=== PATIENT | female | born 1965 | race American Indian/Alaskan Native ===

== ENCOUNTER 2016-12-16 16:48 | Emergency (ER) | payer SELFPAY ==
--- NOTE | 2016-12-16 17:47 | Emergency Department Report ---
Chief Complaint: High BP Stated Complaint: HEAD/CHEST CONGESTION/COUGH/BP HIGH Time Seen by Provider: 12/16/16 17:43 - HPI History of Present Illness: 51-year-old female comes in for complaint of chest congestion cough and elevated blood pressure and headache as well. She denies any past medical history, she takes no medication on a daily basis. She did try some Mucinex at 11:00 this morning. - Exam Vital Signs: Vital Signs 12/16/16 17:25 Temperature 98.1 F Pulse Rate 79 Respiratory 20 Rate Blood Pressure 177/111 O2 Sat by Pulse 95 Oximetry Physical Exam: He is alert and oriented 3 cardio vascular S1-S2 regular rate and rhythm respiratory clear to auscultation bilateral MSE screening note: Focused history and physical exam performed. Due to findings the following was ordered: CBC BMP is been ordered patient to be evaluated in the ER. ED Disposition for MSE Condition: Stable
[2016-12-16 18:34] LABS: Hematocrit 46.2 % (30.3-42.9); Hemoglobin 15.4 gm/dl (10.1-14.3); Mean Corpuscular HGB Conc 33 % (30-34); Mean Corpuscular Hemoglobin 30 pg (28-32); Mean Corpuscular Volume 89 fl (79-97); Platelet Count 233 K/mm3 (140-440); Red Blood Count 5.22 M/mm3 (3.65-5.03); Red Cell Distribution Width 13.4 % (13.2-15.2); White Blood Count 6.9 K/mm3 (4.5-11.0)
[2016-12-16 18:59] LABS: Anion Gap 16 mmol/L; BUN/Creatinine Ratio 21.25; Blood Urea Nitrogen 17 mg/dL (7-17); Calcium 9.1 mg/dL (8.4-10.2); Carbon Dioxide 27 mmol/L (22-30); Chloride 104.6 mmol/L (98-107); Glucose 98 mg/dL (65-100); Sodium 143 mmol/L (137-145)
[2016-12-16] MEDS ORDERED: DUONEB 0.5 MG-3 MG/3 ML SOLN IH ONE (21:14)
[2016-12-16] MEDS ORDERED: DELTASONE PO ONE (21:16)
--- NOTE | 2016-12-16 21:16 | Emergency Department Report ---
HPI - General Chief Complaint: High BP Time Seen by Provider: 12/16/16 17:43 - HPI HPI: This is a 51-year-old female who presents to the emergency department with complaint of a one-week history of a productive cough and head and chest congestion. She denies any fever, chest pain, shortness breath, back pain, nausea, vomiting. She tried some Mucinex for symptoms without much relief. She admits to tobacco abuse. No recent travel or sick contacts at home. She does not have a primary care doctor. The patient was found to have elevated blood pressure when she came here through triage. She denies any diagnosed history of hypertension and is not on any medications. She does admit to drinking a lot of caffeinated products and eating a diet that is high in salt. ED Past Medical Hx - Past Medical History Previous Medical History?: No - Surgical History Past Surgical History?: No - Social History Smoking Status: Current Every Day Smoker Substance Use Type: Alcohol - Medications Home Medications: Home Medications Medication Instructions Recorded Confirmed Last Taken Type ALBUTEROL Inhaler [ProAir HFA 2 puff IH QID PRN #1 inhalation 12/16/16 Unknown Rx Inhaler] amLODIPine [Norvasc] 5 mg PO DAILY #30 tab 12/16/16 Unknown Rx predniSONE [Deltasone] 20 mg PO QDAY #4 tab 12/16/16 Unknown Rx ED Review of Systems ROS: Stated complaint: HEAD/CHEST CONGESTION/COUGH/BP HIGH Other details as noted in HPI Comment: All other systems reviewed and negative Constitutional: denies: chills, fever Eyes: denies: eye pain, eye discharge, vision change ENT: congestion. denies: ear pain Respiratory: cough. denies: shortness of breath Cardiovascular: denies: chest pain, palpitations Gastrointestinal: denies: abdominal pain, nausea, diarrhea Genitourinary: denies: urgency, dysuria, discharge Musculoskeletal: denies: back pain, joint swelling, arthralgia Skin: denies: rash, lesions Neurological: denies: headache, weakness, paresthesias Physical Exam - Physical Exam Vital Signs: Vital Signs 12/16/16 17:25 Temperature 98.1 F Pulse Rate 79 Respiratory 20 Rate Blood Pressure 177/111 O2 Sat by Pulse 95 Oximetry Physical Exam: GENERAL: The patient is well-developed well-nourished. HEENT: Normocephalic. Atraumatic. Extraocular motions are intact. Patient has moist mucous membranes. Pupils equal reactive to light bilaterally. NECK: Supple. Trach is midline. CHEST/LUNGS: Mild wheezing throughout the chest. No cough heard during examination. No tachypnea muscle use. There is no respiratory distress noted. HEART/CARDIOVASCULAR: Regular. There is no tachycardia. There is no gallop rub or murmur. ABDOMEN: Abdomen is soft, nontender. Patient has normal bowel sounds. There is no abdominal distention. SKIN: Warm and dry. NEURO: The patient is awake, alert, and oriented. The patient is cooperative. The patient has no focal neurologic deficits. The patient has normal speech. MUSCULOSKELETAL: There is no tenderness or deformity. There is no limitation range of motion. There is no evidence of acute injury. ED Course Vital Signs 12/16/16 17:25 Temperature 98.1 F Pulse Rate 79 Respiratory 20 Rate Blood Pressure 177/111 O2 Sat by Pulse 95 Oximetry ED Medical Decision Making - Lab Data Result diagrams: 12/16/16 18:24 12/16/16 18:24 - Radiology Data Radiology results: image reviewed interpreted by me: Chest x-ray did not show any acute process. Heart is normal shape and size. No effusions. No pneumothorax. No signs of pneumonia seen. - Medical Decision Making 51-year-old female presents emergency Department with 1 week history of head and chest congestion and a mixed dry and productive cough. Patient's labs are mostly unremarkable. There is no leukocytosis. Chest x-ray does not show any signs of pneumonia, pleural effusion, pneumothorax or any acute process. Patient has mild wheezing on auscultation. She was given a dose of prednisone and a breathing treatment. Patient's vital signs are stable. ED course including being afebrile. However she did present with some elevated blood pressure. Given a dose of Catapres and her discomfort down to a more reasonable level but is still elevated. Patient will be started on Norvasc and we discussed dietary changes to make. She is also been encouraged to quit smoking. She will return to the ER with any worsening of her symptoms or any acute distress. - Differential Diagnosis bronchitis, asthma, pneumonia, viral syndrome Critical Care Time: No Critical care attestation.: If time is entered above; I have spent that time in minutes in the direct care of this critically ill patient, excluding procedure time. ED Disposition Clinical Impression: Tobacco abuse, Bronchospasm Hypertension Qualifiers: Hypertension type: essential hypertension Qualified Code(s): I10 - Essential ( primary) hypertension Disposition: DISCHARGED TO HOME OR SELFCARE Is pt being admited?: No Condition: Stable Instructions: Hypertension (ED), Bronchospasm (ED) Additional Instructions: Please follow-up with a primary care doctor in the next few days. Return to the emergency department with any worsening of your symptoms or any acute distress. Please quit smoking as there is no health benefit. Try to stay away from foods that are high in salt and caffeinated products to help with her blood pressure. Keep a blood pressure log. Prescriptions: ALBUTEROL Inhaler [ProAir HFA Inhaler] 2 puff IH QID PRN #1 inhalation PRN Reason: Shortness Of Breath amLODIPine [Norvasc] 5 mg PO DAILY #30 tab predniSONE [Deltasone] 20 mg PO QDAY #4 tab Referrals: PRIMARY CARE, [Primary Care Provider] - 3-5 Days FRANCOIS GUILLEN MD [Staff Physician] - 3-5 Days [facility] [Outside] - 3-5 Days Time of Disposition: 22:53
[2016-12-16] MEDS ORDERED: CATAPRES PO ONE (21:35)
[2016-12-16 23:07] VITALS: BP 137/89
--- NOTE | 2016-12-17 09:20 | XRay Report ---
CHEST 2 VIEWS INDICATION: Cough. COMPARISON: None similar at this institution. FINDINGS: PA and lateral chest radiographs demonstrate right paratracheal calcified lymph nodes measuring up to approximately 2 x 1.3 cm. Numerous smaller bilateral hilar calcifications as also few calcified granulomas noted, right more than left lung with the largest near the apex approximately 0.8 cm. Normal cardiomediastinal silhouette. No pleural effusions or CHF. Unremarkable bones. CONCLUSION: No acute chest process with old healed granulomatous disease, as described. Please also correlate clinically and with prior chest imaging, if available. Thank you for the opportunity to participate in this patient's care.
== END 2016-12-16 23:06 | disposition home or self-care (01) ==
LOC: ED 16:48
DX: J98.01 Acute bronchospasm (principal); I10 Essential (primary) hypertension; F17.210 Nicotine dependence, cigarettes, uncomplicated; Z88.6 Allergy status to analgesic agent
CPT/HCPCS: 36415; 71020; 80048; 85027; 93005; 93010; 99284; J7512

== ENCOUNTER 2021-10-15 00:40 | Emergency (ER) | payer SELFPAY ==
[2021-10-15 01:19] VITALS: BP 159/84
[2021-10-15] MEDS ORDERED: DICYCLOMINE 20 MG TAB PO ONE ×2 (01:22→04:20)
--- NOTE | 2021-10-15 01:24 | Emergency Department Report ---
ED Abdominal Pain HPI - General Chief Complaint: Abdominal Pain Stated Complaint: HERNIA Time Seen by Provider: 10/15/21 01:22 Source: patient Mode of arrival: Ambulatory Limitations: No Limitations - History of Present Illness Initial Comments: Patient presents with upper abdominal pain for 2 weeks. It is a sharp and cramping pain. It is stabbing. It is burning. The pain does not radiate or migrate. She states that its been constant for 2 weeks. She came in tonight to be seen because she has been told that she has a hernia. She has also had a bowel obstruction previously. She is scared that something is "going to burst inside." Patient states that she has not checked this out earlier despite having 2 weeks of pain because "every hospital around has been so busy." Regardless, she is here today. She is still having bowel movements. She is not vomiting. She has no history of trauma. There is no fever or chills associated with this. There is no cough. Severity scale (0 -10): 10 - Related Data Previous Rx's Medication Instructions Recorded Last Taken Type Albuterol Mdi (or & Nicu Only) 2 puff IH QID PRN #1 inhalation 12/16/16 Unknown Rx [ProAir HFA Inhaler] amLODIPine [Norvasc] 5 mg PO DAILY #30 tab 12/16/16 Unknown Rx predniSONE [Deltasone] 20 mg PO QDAY #4 tab 12/16/16 Unknown Rx Dicyclomine [Bentyl] 20 mg PO QID #60 tab 10/15/21 Unknown Rx Allergies Allergy/AdvReac Type Severity Reaction Status Date / Time codeine AdvReac Nausea Verified 12/16/16 17:32 ED Review of Systems ROS: Stated complaint: HERNIA Other details as noted in HPI Comment: All other systems reviewed and negative Constitutional: denies: fever Eyes: denies: vision change ENT: denies: epistaxis Respiratory: denies: cough Cardiovascular: denies: chest pain Endocrine: denies: unexplained weight loss Gastrointestinal: as per HPI Genitourinary: denies: dysuria Musculoskeletal: denies: back pain Skin: denies: rash Neurological: denies: headache Hematological/Lymphatic: denies: easy bruising ED Past Medical Hx - Past Medical History Additional medical history: SBO - Surgical History Additional Surgical History: Laparotomy - Family History Family history: no significant - Social History Smoking Status: Current Every Day Smoker Substance Use Type: Alcohol - Medications Home Medications: Home Medications Medication Instructions Recorded Confirmed Last Taken Type Albuterol Mdi (or & Nicu Only) 2 puff IH QID PRN #1 inhalation 12/16/16 Unknown Rx [ProAir HFA Inhaler] amLODIPine [Norvasc] 5 mg PO DAILY #30 tab 12/16/16 Unknown Rx predniSONE [Deltasone] 20 mg PO QDAY #4 tab 12/16/16 Unknown Rx Dicyclomine [Bentyl] 20 mg PO QID #60 tab 10/15/21 Unknown Rx ED Physical Exam - General Limitations: No Limitations, Other (Pulse ox noted and normal) General appearance: alert, in no apparent distress - Head Head exam: Present: atraumatic, normocephalic - Eye Eye exam: Present: normal appearance, EOMI - ENT ENT exam: Present: normal orophraynx, normal external ear exam - Neck Neck exam: Present: normal inspection. Absent: meningismus - Respiratory Respiratory exam: Present: normal lung sounds bilaterally. Absent: respiratory distress - Cardiovascular Cardiovascular Exam: Present: regular rate, normal rhythm - GI/Abdominal GI/Abdominal exam: Present: soft, tenderness (Epigastric). Absent: distended, guarding, rebound, pulsatile mass - Extremities Exam Extremities exam: Present: normal capillary refill - Back Exam Back exam: Absent: CVA tenderness (R), CVA tenderness (L) - Neurological Exam Neurological exam: Present: alert, oriented X3, CN II-XII intact, normal gait - Psychiatric Psychiatric exam: Present: normal affect, normal mood - Skin Skin exam: Present: warm, dry ED Course Vital Signs 10/15/21 01:14 Temperature 97.8 F Pulse Rate 80 Respiratory 18 Rate Blood Pressure 159/84 [Right] O2 Sat by Pulse 95 Oximetry - Reevaluation(s) Reevaluation #1: 10/15/21 02:55 Work-up was complete and the patient was discharged. ED Medical Decision Making - Lab Data Result diagrams: 10/15/21 01:31 10/15/21 01:31 - Radiology Data Radiology results: report reviewed - Medical Decision Making Patient presented secondary to abdominal pain and concern for hernia. She does not have evidence of an incarcerated hernia. She has no peritoneal finding. She has been having symptoms for several weeks now. She certainly does not have distention or tympany suggestive of bowel obstruction. There is no bowel obstruction based on plain films. She does have constipation based on plain films. There is no evidence of acute hepatitis or pancreatitis that would account for her symptoms. As she has no peritoneal findings, I do not believe she needs an emergent surgical consult. She will be treated symptomatically and referred to surgery as an outpatient. Critical Care Time: No Critical care attestation.: If time is entered above; I have spent that time in minutes in the direct care of this critically ill patient, excluding procedure time. ED Disposition Clinical Impression: Acute epigastric pain, Chronic constipation Ventral hernia Qualifiers: Obstruction and gangrene presence: without obstruction or gangrene Qualified Code(s): K43.9 - Ventral hernia without obstruction or gangrene Disposition: 01 HOME / SELF CARE / HOMELESS Is pt being admited?: No Condition: Stable Instructions: Hernia, Adult, Abdominal Pain, Adult, Chronic Constipation, Abdominal Pain (ED) Additional Instructions: Have a high-fiber diet. Drink plenty of water. Return for problems. Continue using your laxative for constipation. Follow-up with the surgeon to discuss hernia repair. Prescriptions: Dicyclomine [Bentyl] 20 mg PO QID #60 tab Referrals: RENITA ZHANG MD [Staff Physician] - 3-5 Days PRIMARY CAREMD [Referring] - 3-5 Days FARSHAD COMBS MD [Staff Physician] - 3-5 Days
[2021-10-15 01:41] LABS: Hematocrit 44.8 % (30.3-42.9); Hemoglobin 14.5 gm/dl (10.1-14.3); Mean Corpuscular HGB Conc 32 % (30-34); Mean Corpuscular Volume 90 fl (79-97); Platelet Count 261 K/mm3 (140-440); Red Blood Count 4.96 M/mm3 (3.65-5.03); Red Cell Distribution Width 14.1 % (13.2-15.2)
[2021-10-15 02:05] LABS: Alanine Aminotransferase 19 units/L (7-56); Albumin 4.4 g/dL (3.9-5); BUN/Creatinine Ratio 17; Blood Urea Nitrogen 15 mg/dL (7-17); Calcium 8.9 mg/dL (8.4-10.2); Hemolysis Index 10
--- NOTE | 2021-10-15 02:26 | XRay Report ---
ABDOMEN 3 VIEW(S) INDICATION / CLINICAL INFORMATION: pain w/hx of sbo. COMPARISON: None available. FINDINGS: TUBES / LINES: None. BOWEL GAS PATTERN: Moderate colonic stool burden in the proximal descending colon and distal transver se colon. Nonobstructive pattern. FREE AIR / EXTRALUMINAL GAS: None seen. ADDITIONAL FINDINGS: Calcified right basilar granuloma with otherwise clear lungs. IMPRESSION: 1. Nonobstructive bowel gas pattern. Moderate colonic stool burden may be seen with constipation. Signer Name: Ross Jean MD Signed: 10/15/2021 2:22 AM Workstation Name: [id number]
== END 2021-10-15 03:38 | disposition home or self-care (01) ==
LOC: ED 00:40
DX: K43.9 Ventral hernia without obstruction or gangrene (principal); K59.09 Other constipation; F17.200 Nicotine dependence, unspecified, uncomplicated
CPT/HCPCS: 36415; 74022; 80053; 83690; 85027; 99283